=== PATIENT | female | born 1965 | race Caucasian/White ===

== ENCOUNTER 2023-11-08 07:02 | Day surgery (SDC) | payer OTHER ==
[~2023-11-08] VITALS: Ht 154.9 cm; Wt 65.9 kg
[~2023-11-08 07:02] MED LIST: SODIUM CHLORIDE 0.9% 1,000 ML ONE
[2023-11-08] MEDS ORDERED: ALBUTEROL SULFATE 2.5 MG/0.5 ML NEB SOLUTION NEB ONE (07:03)
[2023-11-08] MEDS ORDERED: LIDOCAINE 4% 50 ML SOLUTION TP ONE (07:03)
[2023-11-08] MEDS ORDERED: LIDOCAINE 2% 11 ML JELLY TP ONE (07:03)
[2023-11-08] MEDS ORDERED: BENZOCAINE 20% 50 MCG/SPRAY 57 GM TP ONE (07:03)
[2023-11-08] MEDS: SODIUM CHLORIDE 0.9% 1,000 ML IV ONE (07:46)
[2023-11-08] MEDS ORDERED: FentaNYL CITRATE PF 100 MCG/2 ML VIAL ONE (08:08)
[2023-11-08] MEDS ORDERED: MIDAZOLAM HCL 2 MG/2 ML VIAL ONE (08:08)
[2023-11-08] MEDS ORDERED: EPINEPHrine 1:10,000 [1 MG/10 ML] SYRINGE ONE (08:09)
[2023-11-08] MEDS ORDERED: NALOXONE HCL 0.4 MG/ML VIAL ONE (08:10)
[2023-11-08] MEDS ORDERED: DiphenhydrAMINE HCL 50 MG/ML VIAL ONE (08:10)
[2023-11-08] MEDS ORDERED: FLUMAZENIL 0.1 MG/ML 5 ML VIAL IVP ONE (08:10)
[2023-11-08] MEDS ORDERED: ATROPINE SULFATE 0.1 MG/ML 10 ML SYRINGE IVP ONE (08:10)
[2023-11-08] MEDS ORDERED: SODIUM TETRADECYL SULFATE 3% 60 MG/2 ML VIAL IVP ONE (08:10)
[2023-11-08 09:16] VITALS: PULSE 65; RESP 12; O2SAT 100
[2023-11-08] MEDS ORDERED: MethylPREDNISolone SOD SUCC 125 MG/2 ML VIAL ONE (10:11)
[2023-11-08] MEDS: MethylPREDNISolone SOD SUCC 125 MG/2 ML VIAL IVP ONE (10:14)
== END 2023-11-08 11:15 | disposition home or self-care (01) ==
LOC: SURGERY 07:02
PROVIDERS: ATTEND Internal Medicine Critical Care Medicine
DX: R05.3 Chronic cough (principal); R06.2 Wheezing; J98.09 Other diseases of bronchus, not elsewhere classified; J84.10 Pulmonary fibrosis, unspecified; J98.8 Other specified respiratory disorders; R04.2 Hemoptysis
CPT/HCPCS: 87206; 87101; 87220; 87070; 88108; 31623; 31624; 94640; 71045; 87015; J3010; J2250; J2919; Q9967; J7030; J0171; J0461; J1200; J2310; J3490; J7613; Z7610